=== PATIENT | male | born 1975 | race Caucasian/White ===

== ENCOUNTER 2018-09-10 04:54 | Emergency (ER) | payer MEDICARE ==
[2018-09-10] MEDS ORDERED: methylPREDNISolone Sodium Succinate 125 MG/2 ML SDV IVPUSH ONE (05:10)
--- NOTE | 2018-09-10 05:12 | EDM.PDOC ---
ED HPI GENERAL MEDICAL PROBLEM - General Chief Complaint: General Stated Complaint: HERITARY ANGIO EDEMA Time Seen by Provider: 09/10/18 05:10 Source of Information: Reports: Patient - History of Present Illness INITIAL COMMENTS - FREE TEXT/NARRATIVE: HISTORY AND PHYSICAL: History of present illness: Patient with hereditary angioedema presents with diffuse swelling over his hands and chest states he can feel the swelling in his throat with voice change he has no respiratory distress at this time no hypotension No fever nausea vomiting chills sweats Is been off his medication Haegarda for 3 weeks He states generally without his medication generally has an 80% chance of requiring intubation, I certainly do not have access to this medication at this time I have provided FFP for C1 esterase inhibitor content Review of systems: As per history of present illness and below otherwise all systems reviewed and negative. Past medical history: As per history of present illness and as reviewed below otherwise noncontributory. Surgical history: As per history of present illness and as reviewed below otherwise noncontributory. Social history: No reported history of drug or alcohol abuse. Family history: As per history of present illness and as reviewed below otherwise noncontributory. Physical exam: HEENT: Atraumatic, normocephalic, pupils reactive, negative for conjunctival pallor or scleral icterus, mucous membranes moist, throat clear, neck supple, nontender, trachea midline. Lungs: Clear to auscultation, breath sounds equal bilaterally, chest nontender. Heart: S1S2, regular, negative for clicks, rubs, or JVD. Abdomen: Soft, nondistended, nontender. Negative for masses or hepatosplenomegaly. Negative for costovertebral tenderness. Pelvis: Stable nontender. Genitourinary: Deferred. Rectal: Deferred. Extremities: Atraumatic, negative for cords or calf pain. Neurovascular unremarkable. Neuro: Awake, alert, oriented. Cranial nerves II through XII unremarkable. Cerebellum unremarkable. Motor and sensory unremarkable throughout. Exam nonfocal. Diagnostics: []CBC CMP UA INR Chest 1 view Therapeutics: [Medrol 125 mg IV Benadryl 50 mg IV FFP ] Impression: [Hereditary angioedema]\ C1 esterase inhibitor deficiency Definitive disposition and diagnosis as appropriate pending reevaluation and review of above. Right Shoulder Pain Score (Numeric/FACES): 5 - Related Data Allergies Allergy/AdvReac Type Severity Reaction Status Date / Time Penicillins Allergy Hives Verified 09/10/18 05:11 Home Meds: Home Meds cloNIDine HCl [Clonidine HCl ER] 1 tab PO DAILY 07/19/18 [History] C1 Esterase Inhibitor [Haegarda] 2,000 unit SQ ASDIRECTED 09/10/18 [History] EPINEPHrine [Epipen] 0.3 mg IM ASDIRECTED 09/10/18 [History] Past Medical History Cardiovascular History: Reports: Other (See Below) Other Cardiovascular History: hereditary angio neurotic edema Oncologic (Cancer) History: Reports: Other (See Below) Other Oncologic History: testicular ca at 21 yo - Infectious Disease History Infectious Disease History: Reports: Chicken Pox - Past Surgical History GI Surgical History: Reports: Other (See Below) Other GI Surgeries/Procedures: tumor removed from stomach Other Musculoskeletal Surgeries/Procedures:: rods and pins in back from a back surgery Social & Family History - Caffeine Use Caffeine Use: Reports: Energy Drinks, Soda ED ROS GENERAL - Review of Systems Review Of Systems: See Below ED EXAM, GENERAL - Physical Exam Exam: See Below Course - Vital Signs Last Recorded V/S: Last Vital Signs Temp 97.1 F 09/10/18 05:13 Pulse 109 H 09/10/18 05:13 Resp 20 09/10/18 05:13 BP 145/111 H 09/10/18 05:13 Pulse Ox 98 09/10/18 05:13 - Orders/Labs/Meds Orders: Active Orders 24 hr Category Date Time Status ABO/RH TYPE [BBK] Stat Lab 09/10/18 05:13 Ordered FRESH FROZEN PLASMA [BBK] Stat Lab 09/10/18 05:13 Ordered INR,PT,PROTHROMBIN TIME [COAG] Routine Lab 09/10/18 05:13 Ordered PTT,PARTIAL THROMBOPLSTIN TIME [COAG] Routine Lab 09/10/18 05:13 Ordered Meds: Medications Discontinued Medications Generic Name Dose Route Start Last Admin Trade Name Freq PRN Reason Stop Dose Admin Diphenhydramine HCl 50 mg 09/10/18 05:22 Benadryl IVPUSH 09/10/18 05:23 ONETIME ONE Methylprednisolone Sodium Succinate 125 mg 09/10/18 05:10 09/10/18 05:17 Solu-Medrol IVPUSH 09/10/18 05:11 125 mg ONETIME ONE Administration Departure - Departure Time of Disposition: 05:31 Disposition: DC/Tfer to Acute Hospital 02 Condition: Fair Clinical Impression: Hereditary angioedema - Discharge Information Referrals: PCP,None [Primary Care Provider] - Forms: ED Department Discharge - My Orders Last 24 Hours: My Active Orders 09/10/18 05:13 ABO/RH TYPE [BBK] Stat FRESH FROZEN PLASMA [BBK] Stat INR,PT,PROTHROMBIN TIME [COAG] Routine PTT,PARTIAL THROMBOPLSTIN TIME [COAG] Routine - Assessment/Plan Last 24 Hours: My Active Orders 09/10/18 05:13 ABO/RH TYPE [BBK] Stat FRESH FROZEN PLASMA [BBK] Stat INR,PT,PROTHROMBIN TIME [COAG] Routine PTT,PARTIAL THROMBOPLSTIN TIME [COAG] Routine
[2018-09-10] MEDS ORDERED: diphenhydrAMINE 50 MG/ML SDV IVPUSH ONE (05:22)
== END 2018-09-10 06:38 ==
LOC: MW.ED 04:54
DX: D84.1 Defects in the complement system (principal); Z79.899 Other long term (current) drug therapy; Z88.0 Allergy status to penicillin
CPT/HCPCS: 36415; 36430; 85610; 85730; 86900; 86901; 96374; 96375; 99285-25; J1200; J2930; P9017

== ENCOUNTER 2018-09-25 06:03 | Emergency (ER) | payer MEDICARE ==
[2018-09-25] MEDS ORDERED: methylPREDNISolone Sodium Succinate 125 MG/2 ML SDV ONE (06:14)
[2018-09-25] MEDS ORDERED: diphenhydrAMINE 50 MG/ML SDV ONE (06:14)
[2018-09-25] MEDS ORDERED: methylPREDNISolone Sodium Succinate 125 MG/2 ML SDV IVPUSH ONE (06:15)
[2018-09-25] MEDS ORDERED: diphenhydrAMINE 50 MG/ML SDV IVPUSH ONE (06:15)
[2018-09-25] MEDS ORDERED: Sodium Chloride 0.9% 10 ML Syringe FLUSH PRN (06:15)
[2018-09-25] MEDS ORDERED: Famotidine 20 MG/2 ML SDV ONE (06:15)
[2018-09-25] MEDS ORDERED: Sodium Chloride 0.9% 1,000 ML IV SCH (06:15)
[2018-09-25] MEDS ORDERED: Sodium Chloride 0.9% 2.5 ML Syringe FLUSH PRN (06:15)
[2018-09-25] MEDS ORDERED: Famotidine 20 MG/2 ML SDV IVPUSH ONE (06:16)
--- NOTE | 2018-09-25 06:25 | EDM.PDOC ---
ED HPI GENERAL MEDICAL PROBLEM - General Chief Complaint: ENT Problem Stated Complaint: INTOXICATED Time Seen by Provider: 09/25/18 06:14 - History of Present Illness INITIAL COMMENTS - FREE TEXT/NARRATIVE: HISTORY AND PHYSICAL: History of present illness: The patient is a 43-year-old male with a history of hereditary and she'll edema and who was known here to the ED for prior visits for same and says that he has not had his medication, Haegarda, for multiple weeks and got the medication recently and gave himself his first dose yesterday. The patient says that he had some indiscretions last night where he drank alcohol and did smoke some methamphetamine and he noticed some tingling and swelling in the back of his throat with swallowing. He says that the last time he was here he was seen by Dr. Mcfadden and had swelling all over his body as well as oropharyngeal swelling and was not intubated here but given FFP and flown out to [facility] and [place]; on that visit he did not have his maintenance medications He says he has been intubated in the past and he is concerned about that now he came via EMS. The patient has Icatibant as a rescue and did dose himself this morning at approximately 5:30 and then called EMS because of concerns that it might not work. He also gave himself an EpiPen. The patient says that when he usually is on his medications and his maintenance Haegarda he has no issues. The patient is here in the ED saying that sometimes when he uses his rescue meds it takes a little time to work and have been times that Solu-Medrol Benadryl and EpiPen will work for him. He is telling me that when the tickling and swelling in his throat started yesterday he was not having any hand or body swelling and no facial swelling. He says that that did start prior to drinking the alcohol and doing the drugs and it seemed to get worse after doing that. He does not feel short of breath currently but he says that his throat is very dry and that is always a bad side for him. He is here because he did not when a weighted home to see if his rescue medication was going to work. The patient has no chest pain no abdominal pain no nausea no vomiting and no other issues. Review of systems: As per history of present illness and below otherwise all systems reviewed and negative. Past medical history: As per history of present illness and as reviewed below otherwise noncontributory. Surgical history: As per history of present illness and as reviewed below otherwise noncontributory. Social history: No reported history of drug or alcohol abuse. Family history: As per history of present illness and as reviewed below otherwise noncontributory. Physical exam: General: Well-developed well-nourished man who is nontoxic and vital signs are noted by me. He is speaking clearly without breathlessness and does not have a hoarse or muffled voice. He has no facial swelling on visual inspection. HEENT: Atraumatic, normocephalic, pupils reactive, negative for conjunctival pallor or scleral icterus, mucous membranes moist, throat clear, neck supple, nontender, trachea midline. Patient has only slight uvula edema and soft palate swelling but his tongue and the remainder of the oropharynx is without erythema and There is no swelling of the same area Lungs: Clear to auscultation, breath sounds equal bilaterally, chest nontender. There is no wheezing stridor or work of breathing appreciated Heart: S1S2, regular, negative for clicks, rubs, or JVD. Abdomen: Soft, nondistended, nontender. Negative for masses or hepatosplenomegaly. NABS. Pelvis: Deferred Genitourinary: Deferred. Rectal: Deferred. Extremities: Atraumatic, negative for cords or calf pain. Neurovascular unremarkable. As no evidence of any soft tissue swelling of hands legs and feet Neuro: Awake, alert, oriented. Cranial nerves II through XII unremarkable. Cerebellum unremarkable. Motor and sensory unremarkable throughout. Exam nonfocal. Diagnostics: Therapeutics: IV O2 monitor Solu-Medrol Benadryl Pepcid Patient took a dose of EpiPen at home as well as his Icatibant In light of this patient's history and of his ability to recognize when his medications are working and not working I will discuss transfer of this patient to [facility]. He says that when he has been intubated in the past and has been for several days and he needs to be observed very closely and potentially need intubation. We have alerted the flight team and wrote her cannot fly due to the weather and the cold so fixed wing will be in route. The patient agrees with me that we can wait temporarily to see if his medication that he dose at home as well as what we are giving him here will improve his symptomatology. 0631: Case was discussed with Dr. Veras at the ER at [facility] in [place] and he accepts the patient for transfer. He is aware of the patient's medication dosing prior to coming here as well as what we have done here and that we are expectantly observing him and working with him to try to prevent intubation. Flight team has also been notified and checking the weather 0642: Patient continues to remain stable and says that he does not feel like his swelling sensation and dry throat or getting worse and he is plateauing and would like to continue to monitor the symptoms. He says he feels calmer now that he is in the ED. He says that if he continues to not worsen and to start feel better he does not feel that he needs to be transferred but we will continue to monitor and plan transfer at this time 0658: Patient continues to remain stable here in the ED and we continue to monitor him and flight team is in route. Impression: Oropharyngeal swelling with history of hereditary angioedema Definitive disposition and diagnosis as appropriate pending reevaluation and review of above. - Related Data Allergies Allergy/AdvReac Type Severity Reaction Status Date / Time Penicillins Allergy Hives Verified 09/25/18 06:12 Home Meds: Home Meds C1 Esterase Inhibitor [Haegarda] 2,000 unit SQ ASDIRECTED 09/10/18 [History] EPINEPHrine [Epipen] 0.3 mg IM ASDIRECTED 09/10/18 [History] Danazol 200 mg PO BID 09/25/18 [History] Icatibant Acetate [Firazyr] 30 mg SUBCUT ASDIRECTED PRN 09/25/18 [History] Lisinopril 10 mg PO DAILY 09/25/18 [History] amLODIPine [Norvasc] 5 mg PO DAILY 09/25/18 [History] Past Medical History Cardiovascular History: Reports: Other (See Below) Other Cardiovascular History: hereditary angio neurotic edema Neurological History: Reports: None Psychiatric History: Reports: None Endocrine/Metabolic History: Reports: None Hematologic History: Reports: None Immunologic History: Reports: None Oncologic (Cancer) History: Reports: Other (See Below) Other Oncologic History: testicular ca at 21 yo Dermatologic History: Reports: None - Infectious Disease History Infectious Disease History: Reports: Chicken Pox - Past Surgical History GI Surgical History: Reports: Other (See Below) Other GI Surgeries/Procedures: tumor removed from stomach Other Musculoskeletal Surgeries/Procedures:: rods and pins in back from a back surgery Social & Family History - Family History Family Medical History: Noncontributory - Caffeine Use Caffeine Use: Reports: Energy Drinks, Soda ED ROS GENERAL - Review of Systems Review Of Systems: ROS reveals no pertinent complaints other than HPI. ED EXAM, GENERAL - Physical Exam Exam: See Below (see dictation) Course - Vital Signs Last Recorded V/S: Last Vital Signs Temp 35.9 C 09/25/18 06:07 Pulse 94 09/25/18 06:45 Resp 18 09/25/18 06:45 BP 151/99 H 09/25/18 06:45 Pulse Ox 97 09/25/18 06:45 - Orders/Labs/Meds Orders: Active Orders 24 hr Category Date Time Status Cardiac Monitoring [RC] . DIRECTED Care 09/25/18 06:15 Active Oxygen Therapy, ED [RC] ASDIRECTED Care 09/25/18 06:15 Active Pulse Oximetry [RC] ASDIRECTED Care 09/25/18 06:15 Active Sodium Chloride 0.9% [Normal Saline] 1,000 ml Med 09/25/18 06:15 Active IV ASDIRECTED Sodium Chloride 0.9% [Saline Flush] Med 09/25/18 06:15 Active 10 ml FLUSH ASDIRECTED PRN Sodium Chloride 0.9% [Saline Flush] Med 09/25/18 06:15 Active 2.5 ml FLUSH ASDIRECTED PRN Saline Lock Insert [OM.PC] Stat Oth 09/25/18 06:15 Ordered Medication Orders Sodium Chloride (Normal Saline) 1,000 mls @ 125 mls/hr IV ASDIRECTED ABEL Last Infusion: 09/25/18 06:35 Dose: 999 mls/hr Admin: 09/25/18 06:35 Dose: 125 mls/hr Sodium Chloride (Saline Flush) 10 ml FLUSH ASDIRECTED PRN PRN Reason: Keep Vein Open Sodium Chloride (Saline Flush) 2.5 ml FLUSH ASDIRECTED PRN PRN Reason: Keep Vein Open Meds: Medications Generic Name Dose Route Start Last Admin Trade Name Freq PRN Reason Stop Dose Admin Sodium Chloride 1,000 mls @ 125 mls/hr 09/25/18 06:15 09/25/18 06:35 Normal Saline IV 999 mls/hr ASDIRECTED ABEL Infusion Sodium Chloride 10 ml 09/25/18 06:15 Saline Flush FLUSH ASDIRECTED PRN Keep Vein Open Sodium Chloride 2.5 ml 09/25/18 06:15 Saline Flush FLUSH ASDIRECTED PRN Keep Vein Open Discontinued Medications Generic Name Dose Route Start Last Admin Trade Name Josefa PRN Reason Stop Dose Admin Diphenhydramine HCl 50 mg 09/25/18 06:15 09/25/18 06:17 Benadryl IVPUSH 09/25/18 06:16 50 mg ONETIME ONE Administration Diphenhydramine HCl Confirm 09/25/18 06:14 Benadryl Administered 09/25/18 06:15 Dose 50 mg .ROUTE .STK-MED ONE Famotidine 20 mg 09/25/18 06:16 09/25/18 06:18 Pepcid IVPUSH 09/25/18 06:17 20 mg ONETIME ONE Administration Famotidine Confirm 09/25/18 06:15 Pepcid Administered 09/25/18 06:16 Dose 20 mg .ROUTE .STK-MED ONE Methylprednisolone Sodium Succinate 125 mg 09/25/18 06:15 09/25/18 06:17 Solu-Medrol IVPUSH 09/25/18 06:16 125 mg ONETIME ONE Administration Methylprednisolone Sodium Succinate Confirm 09/25/18 06:14 Solu-Medrol Administered 09/25/18 06:15 Dose 125 mg .ROUTE .STK-MED ONE Departure - Departure Time of Disposition: 06:58 Disposition: DC/Tfer to Acute Hospital 02 Condition: Good Clinical Impression: Hereditary angioedema - Discharge Information Referrals: PCP,Unknown [Primary Care Provider] - Forms: ED Department Discharge - My Orders Last 24 Hours: My Active Orders 09/25/18 06:15 Cardiac Monitoring [RC] . DIRECTED Oxygen Therapy, ED [RC] ASDIRECTED Pulse Oximetry [RC] ASDIRECTED Sodium Chloride 0.9% [Normal Saline] 1,000 ml IV ASDIRECTED Sodium Chloride 0.9% [Saline Flush] 10 ml FLUSH ASDIRECTED PRN Sodium Chloride 0.9% [Saline Flush] 2.5 ml FLUSH ASDIRECTED PRN Saline Lock Insert [OM.PC] Stat - Assessment/Plan Last 24 Hours: My Active Orders 09/25/18 06:15 Cardiac Monitoring [RC] . DIRECTED Oxygen Therapy, ED [RC] ASDIRECTED Pulse Oximetry [RC] ASDIRECTED Sodium Chloride 0.9% [Normal Saline] 1,000 ml IV ASDIRECTED Sodium Chloride 0.9% [Saline Flush] 10 ml FLUSH ASDIRECTED PRN Sodium Chloride 0.9% [Saline Flush] 2.5 ml FLUSH ASDIRECTED PRN Saline Lock Insert [OM.PC] Stat
== END 2018-09-25 07:29 ==
LOC: MW.ED 06:03
DX: D84.1 Defects in the complement system (principal); J39.2 Other diseases of pharynx; Z88.0 Allergy status to penicillin; Z79.899 Other long term (current) drug therapy
CPT/HCPCS: 96361; 96374; 96375; 99285; J1200; J2930; J3490; J7040; 99284

== ENCOUNTER 2018-10-10 13:00 | Emergency (ER) | payer MEDICARE ==
[2018-10-10] MEDS ORDERED: diphenhydrAMINE 50 MG/ML SDV IVPUSH ONE (13:24)
[2018-10-10] MEDS ORDERED: Sodium Chloride 0.9% 1,000 ML IV STA (13:24)
[2018-10-10] MEDS ORDERED: Pantoprazole 40 MG Vial IVPUSH ONE (13:24)
[2018-10-10] MEDS ORDERED: methylPREDNISolone Sodium Succinate 125 MG/2 ML SDV ONE (13:33)
[2018-10-10] MEDS ORDERED: methylPREDNISolone Sodium Succinate 125 MG/2 ML SDV IVPUSH ONE (13:38)
--- NOTE | 2018-10-10 13:38 | EDM.PDOC ---
ED HPI GENERAL MEDICAL PROBLEM - General Chief Complaint: ENT Problem Stated Complaint: DIFFICULTY SWALLOWING Time Seen by Provider: 10/10/18 13:16 - History of Present Illness INITIAL COMMENTS - FREE TEXT/NARRATIVE: HISTORY AND PHYSICAL: History of present illness: Patient 43-year-old white male with history of hereditary angioedema who is been intubated 134 prior episodes he is currently on therapy with Esterace inhibitor and presents with what seems to be some slight swelling of his oropharynx he describes it as just feeling somewhat dehydrated but due to his past history was extremely concerned this may represent early angioedema there' s been no stridor no shortness of breath no dysphonia. I discussed with patient in transfer for his high risk and further observation and also discussed the nature of this in the limits as to treatment other than what he is on and of course supportive care up to and including intubation at this time patient has no interest in his declining more immediate transfer but does agree to close monitoring IV steroids and antihistamines. Patient has a history of substance abuse and did acknowledge using methamphetamine last night Review of systems: As per history of present illness and below otherwise all systems reviewed and negative. Past medical history: As per history of present illness and as reviewed below otherwise noncontributory. Surgical history: As per history of present illness and as reviewed below otherwise noncontributory. Social history: No reported history of drug or alcohol abuse. Family history: As per history of present illness and as reviewed below otherwise noncontributory. Physical exam: HEENT: Atraumatic, normocephalic, pupils reactive, negative for conjunctival pallor or scleral icterus, mucous membranes moist, throat clear, neck supple, nontender, trachea midline. Lungs: Clear to auscultation, breath sounds equal bilaterally, chest nontender. Heart: S1S2, regular, negative for clicks, rubs, or JVD. Abdomen: Soft, nondistended, nontender. Negative for masses or hepatosplenomegaly. Negative for costovertebral tenderness. Pelvis: Stable nontender. Genitourinary: Deferred. Rectal: Deferred. Extremities: Atraumatic, negative for cords or calf pain. Neurovascular unremarkable. Neuro: Awake, alert, oriented. Cranial nerves II through XII unremarkable. Cerebellum unremarkable. Motor and sensory unremarkable throughout. Exam nonfocal. Diagnostics: Soft tissue neck chest x-ray monitoring tech and pulse oximetry Therapeutics: Daily 1 L bolus Solu-Medrol 125 mg IV Benadryl 50 mg IV Protonix 40 mg IV patient was intubated via rapid sequence intubation with an 80 ET tube and NG tube Law catheter were ordered propofol drip was initiated Impression: #1 hereditary angioedema #2 substance abuse (methamphetamine) Definitive disposition and diagnosis as appropriate pending reevaluation and review of above. - Related Data Allergies Allergy/AdvReac Type Severity Reaction Status Date / Time Penicillins Allergy Hives Verified 10/10/18 13:15 Home Meds: Home Meds C1 Esterase Inhibitor [Haegarda] 2,000 unit SQ ASDIRECTED 09/10/18 [History] EPINEPHrine [Epipen] 0.3 mg IM ASDIRECTED 09/10/18 [History] Danazol 200 mg PO BID PRN 09/25/18 [History] Icatibant Acetate [Firazyr] 30 mg SUBCUT ASDIRECTED PRN 09/25/18 [History] amLODIPine [Norvasc] 5 mg PO DAILY 09/25/18 [History] cloNIDine 10/10/18 [History] Past Medical History HEENT History: Reports: Other (See Below) Other HEENT History: laryngeal edema Cardiovascular History: Reports: Other (See Below) Other Cardiovascular History: hereditary angio neurotic edema Gastrointestinal History: Reports: None Genitourinary History: Reports: Other (See Below) Other Genitourinary History: testicular ca Musculoskeletal History: Reports: None Neurological History: Reports: None Psychiatric History: Reports: None Endocrine/Metabolic History: Reports: None Hematologic History: Reports: None Immunologic History: Reports: None Oncologic (Cancer) History: Reports: Other (See Below) Other Oncologic History: testicular ca at 21 yo Dermatologic History: Reports: None - Infectious Disease History Infectious Disease History: Reports: Chicken Pox - Past Surgical History GI Surgical History: Reports: Other (See Below) Other GI Surgeries/Procedures: tumor removed from stomach Other Musculoskeletal Surgeries/Procedures:: rods and pins in back from a back surgery Social & Family History - Family History Family Medical History: Noncontributory - Caffeine Use Caffeine Use: Reports: Energy Drinks, Soda ED ROS GENERAL - Review of Systems Review Of Systems: ROS reveals no pertinent complaints other than HPI. ED EXAM, GENERAL - Physical Exam Exam: See Below (See dictation) Course - Vital Signs Text/Narrative:: Patient's emergency room course unremarkable for stable hemodynamics but progressive symptomatology in the form of increasing swelling per patient's description with difficulty swallowing at this time his saturation remains 100% I discussed with patient his workup up until now including his chest x-ray soft tissue neck results as well as his stable vital signs and pulse oximetry for the moment patient remains anxious and states that this is clearly progressing in that he has had similar episodes in the past and if resulted ultimately in emergent airway management I discussed with him risks and benefits and intubation for his clinical statement and subsequent transfer patient is in agreement. Case was discussed with Dr. Harrington status post intubation graciously has accepted the patient for transfer he'll transfer via [facility]. Impression remains #1. Hereditary Angioedema Last Recorded V/S: Last Vital Signs Temp 35.8 C 10/10/18 13:18 Pulse 88 10/10/18 14:47 Resp 18 10/10/18 14:47 BP 141/100 H 10/10/18 14:47 Pulse Ox 98 10/10/18 14:47 - Orders/Labs/Meds Orders: Active Orders 24 hr Category Date Time Status EKG Documentation Completion [RC] STAT Care 10/10/18 15:29 Ordered CBC WITH AUTO DIFF [HEME] Stat Lab 10/10/18 15:29 Ordered COMPREHENSIVE METABOLIC PN,CMP [CHEM] Stat Lab 10/10/18 15:29 Ordered methylPREDNISolone Sod Succ [Solu-MEDROL] Med 10/11/18 13:24 Once 125 mg IVPUSH DAILY ONE Medication Orders Methylprednisolone Sodium Succinate (Solu-Medrol) 125 mg IVPUSH DAILY ONE Stop: 10/11/18 13:25 Meds: Medications Generic Name Dose Route Start Last Admin Trade Name Freq PRN Reason Stop Dose Admin Methylprednisolone Sodium Succinate 125 mg 10/11/18 13:24 Solu-Medrol IVPUSH 10/11/18 13:25 DAILY ONE Discontinued Medications Generic Name Dose Route Start Last Admin Trade Name Freq PRN Reason Stop Dose Admin Diphenhydramine HCl 50 mg 10/10/18 13:24 10/10/18 13:39 Benadryl IVPUSH 10/10/18 13:25 50 mg ONETIME ONE Administration Sodium Chloride 1,000 mls @ 999 mls/hr 10/10/18 13:24 10/10/18 13:37 Normal Saline IV 10/10/18 14:24 999 mls/hr NOW STA Administration Propofol Confirm 10/10/18 15:15 Diprivan 100 Ml Administered 10/10/18 15:16 Dose 100 mls @ as directed .ROUTE .STK-MED ONE Methylprednisolone Sodium Succinate Confirm 10/10/18 13:33 10/10/18 13:38 Solu-Medrol Administered 10/10/18 13:34 Not Given Dose 125 mg .ROUTE .STK-MED ONE Methylprednisolone Sodium Succinate 125 mg 10/10/18 13:38 10/10/18 13:40 Solu-Medrol IVPUSH 10/10/18 13:39 125 mg ONETIME ONE Administration Pantoprazole Sodium 40 mg 10/10/18 13:24 10/10/18 13:37 Protonix Iv IVPUSH 10/10/18 13:25 40 mg NOW ONE Administration Departure - Departure Time of Disposition: 15:35 Disposition: DC/Tfer to Acute Hospital 02 Condition: Serious Clinical Impression: Hereditary angioedema - Discharge Information Referrals: PCP,None [Primary Care Provider] - Forms: ED Department Discharge - My Orders Last 24 Hours: My Active Orders 10/10/18 15:29 EKG Documentation Completion [RC] STAT CBC WITH AUTO DIFF [HEME] Stat COMPREHENSIVE METABOLIC PN,CMP [CHEM] Stat 10/11/18 13:24 methylPREDNISolone Sod Succ [Solu-MEDROL] 125 mg IVPUSH DAILY ONE - Assessment/Plan Last 24 Hours: My Active Orders 10/10/18 15:29 EKG Documentation Completion [RC] STAT CBC WITH AUTO DIFF [HEME] Stat COMPREHENSIVE METABOLIC PN,CMP [CHEM] Stat 10/11/18 13:24 methylPREDNISolone Sod Succ [Solu-MEDROL] 125 mg IVPUSH DAILY ONE
--- NOTE | 2018-10-10 15:01 | CR ---
Indication: Field likes throat swelling. Technique: Two views of the soft tissue neck were obtained. Comparison: None Findings: Degenerative changes of the cervical spine are identified. There was patent. No radiopaque foreign body is identified. Impression: Patent airway Dictated by Pooja Quiroz MD @ Oct 10 2018 2:59PM Signed by Dr. Pooja Quiroz @ Oct 10 2018 2:59PM
--- NOTE | 2018-10-10 15:01 | CR ---
Indication: History of angioedema. Feels like throat is swollen. Technique: A single AP portable view of the chest was obtained. 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 The film may potentially be miss marked. A CT is also being performed today. This will allow clarification. No pleural effusion or pneumothorax is identified. Impression: No acute cardiopulmonary process. Potential situs inversus. Dictated by Pooja Quiroz MD @ Oct 10 2018 2:57PM Signed by Dr. Pooja Quiroz @ Oct 10 2018 2:59PM
[2018-10-10] MEDS ORDERED: Etomidate 2 MG/ML 20 ML SDV IVPUSH ONE (15:25)
[2018-10-10] MEDS ORDERED: Succinylcholine 200 MG/10 ML MDV IV ONE (15:25)
[2018-10-10] MEDS ORDERED: Rocuronium 10 MG/ML 10 ML Syringe IVPUSH ONE (15:25)
--- NOTE | 2018-10-10 15:53 | CR ---
Indication: Intubation Technique: A single AP portable view of the chest was obtained. Comparison: October 10, 2018. Findings: An NG tube is identified coursing below the left hemidiaphragm. An ET tube is identified with the tip 4 cm superior to level of the rigo. The heart is normal in size. The lungs are clear. Please note, on the film, there is no evidence of situs inversus. Impression: Intubation. Dictated by Pooja Quiroz MD @ Oct 10 2018 3:51PM Signed by Dr. Pojoa Quiroz @ Oct 10 2018 3:52PM
[2018-10-10 15:55] LABS: CHLORIDE,CL 98 mmol/L (98-107); SODIUM,NA 135 mmol/L (136-148)
[2018-10-10] MEDS ORDERED: Rocuronium 50 MG/5 ML Vial IVPUSH ONE (16:18)
[2018-10-11] MEDS ORDERED: methylPREDNISolone Sodium Succinate 125 MG/2 ML SDV IVPUSH ONE (13:24)
== END 2018-10-10 17:10 ==
LOC: MW.ED 13:00
DX: D84.1 Defects in the complement system (principal); F15.10 Other stimulant abuse, uncomplicated; Z79.899 Other long term (current) drug therapy; Z88.0 Allergy status to penicillin
CPT/HCPCS: 36415; 70360; 71045; 80053; 85025; 93005; 94002; 99285; C9113; J0330; J1200; J2704; J2930; J3490; J7040; 96361; 96365; 96366; 96375; 96376